=== PATIENT | female | born 1985 | race Hispanic/Latino ===

== ENCOUNTER 2022-08-19 18:09 | Emergency (ER) | payer SELFPAY ==
[2022-08-19] MEDS ORDERED: Ketorolac Tromethamine 30 MG/ML VIAL ONE (18:57)
[2022-08-19] MEDS ORDERED: traMADol HCl 50 MG TAB ONE (20:54)
[2022-08-19] MEDS ORDERED: Cyclobenzaprine 10 MG TAB ONE (20:54)
== END 2022-08-19 20:58 | disposition home or self-care (01) ==
LOC: CSHERS 18:09
DX: M54.42 Lumbago with sciatica, left side (principal)
CPT/HCPCS: 96372; 99283; J1885